=== PATIENT | male | born 1985 | race African-American/Black ===

== ENCOUNTER 2020-01-04 14:14 | Emergency (ER) | payer SELFPAY ==
[~2020-01-04] VITALS: Ht 170.2 cm; Wt 79.5 kg
[2020-01-04] MEDS ORDERED: PERTUSS(ACELL),DIPH,TET VAC/PF 0.5 ML VIAL IM ONE (15:15)
[2020-01-04 16:23] VITALS: BP 133/80
== END 2020-01-04 16:51 | disposition home or self-care (01) ==
LOC: EMS 14:15
DX: S01.01XA Laceration without foreign body of scalp, initial encounter (principal); M25.512 Pain in left shoulder; F17.210 Nicotine dependence, cigarettes, uncomplicated; Y35.813A Legal intervention involving manhandling, suspect injured, initial encounter; Y93.89 Activity, other specified; Y92.89 Other specified places as the place of occurrence of the external cause; Y99.8 Other external cause status
CPT/HCPCS: 12001; 90471; 90715